=== PATIENT | female | born 1950 | race Caucasian/White ===

== ENCOUNTER 2017-12-28 12:06 | Inpatient (IN) | payer MEDICARE, OTHER ==
[~2017-12-28] VITALS: Ht 160 cm; Wt 102.1 kg
[2017-12-28] VITALS (327 sets, daily range): BP systolic 131–142; BP diastolic 72–82; PULSE 76–81; TEMP 97.4; O2SAT 67–100
[2017-12-28] MEDS ORDERED: LIPITOR 80MG80 MG PO (13:09)
[2017-12-28] MEDS ORDERED: ASPIRIN 32325 MG/TAB PO (13:09)
[2017-12-28] MEDS ORDERED: PHOSLO667 MG PO (13:10)
[2017-12-28] MEDS ORDERED: COREG 6.256.25 MG/TA PO (13:11)
[2017-12-28] MEDS ORDERED: LANTUS100 U/ML SQ (13:14)
[2017-12-28] MEDS ORDERED: NEURONTIN100 MG/CAP PO (13:15)
[2017-12-28] MEDS ORDERED: REMERON 15M15 MG/TA1 PO (13:15)
[2017-12-28] MEDS ORDERED: LYRICA 75MG CAP75 MG PO (13:15)
[2017-12-28] MEDS ORDERED: PROTEIN1 PDR (13:16)
[2017-12-28] MEDS ORDERED: SYNTHROID 0.0.025 MG PO (13:17)
[2017-12-28] MEDS ORDERED: BRINTELLIX10 PO (13:17)
[2017-12-28] MEDS ORDERED: TUMS500 MG PO (13:18)
[2017-12-28] MEDS ORDERED: ZIRGAN5 GM OP (13:18)
[2017-12-28] MEDS ORDERED: VITAMIN D31000 I1 PO (13:19)
[2017-12-28 13:48] LABS: BILIRUBIN,TOTAL 0.3 mg/dL (0.0-1.0); CALCIUM 8.8 mg/dL (8.4-10.2); MAGNESIUM 1.9 mg/dL (1.6-2.3); PHOSPHOROUS 4.2 mg/dL (2.5-4.5); POTASSIUM 5.7 mmol/L (3.4-5.0); TOTAL PROTEIN 6.9 gm/dL (6.4-8.2)
[2017-12-28 13:57] LABS: CREATININE, serum 8.22 mg/dL (0.52-1.25)
[2017-12-28 14:03] LABS: TROPONIN-I 0.043 ng/mL (0.000-0.034)
[2017-12-28 17:41] LABS: BASO % 0.2 % (0.0-2.0); EOS # 0.3 (0.0-0.7); GRAN # 7.8 (1.4-6.5); HEMOGLOBIN 11.7 g/dl (12.5-16.0); LYMPH # 0.7 (1.2-3.4); LYMPH % 7.9 % (20.0-51.0); MEAN CELL VOLUME 101 fl (80.0-100.0); MEAN CORPUSCULAR HEMOGLOBIN 32 pg (27.0-31.0); MEAN CORPUSCULAR HGB CONC 32 g/dl (33.0-37.0); MEAN PLATELET VOLUME 12.7 fl (7.4-10.4); MONO # 0.5 (0.1-0.6); MONO % 5.5 % (1.7-9.3); PLATELET COUNT 167 K/mm3 (130-400); RED BLOOD COUNT 3.63 M/mm3 (4.10-5.30); REDCELL DISTRIBUTION WIDTH-CV 18.3 % (11.5-14.5)
[2017-12-28 17:42] LABS: HEMATOCRIT 36.7 % (37.0-47.0)
[2017-12-29] VITALS (1222 sets, daily range): BP systolic 99–162; BP diastolic 61–77; PULSE 56–68; TEMP 97.8–98.5; O2SAT 61–100
[2017-12-29 08:38] LABS: CALCIUM 8.8 mg/dL (8.4-10.2); POTASSIUM 4.6 mmol/L (3.4-5.0)
[2017-12-29 08:51] LABS: BASO % 0.4 % (0.0-2.0); EOS # 0.3 (0.0-0.7); EOS % 3.7 % (0-4.0); GRAN # 5.5 (1.4-6.5); GRAN % 74.2 % (42.2-75.2); LYMPH # 0.9 (1.2-3.4); LYMPH % 12.6 % (20.0-51.0); MEAN CELL VOLUME 102 fl (80.0-100.0); MEAN CORPUSCULAR HEMOGLOBIN 32 pg (27.0-31.0); MEAN CORPUSCULAR HGB CONC 31 g/dl (33.0-37.0); MEAN PLATELET VOLUME 12.9 fl (7.4-10.4); MONO # 0.7 (0.1-0.6); MONO % 8.7 % (1.7-9.3); PLATELET COUNT 143 K/mm3 (130-400); RED BLOOD COUNT 3.13 M/mm3 (4.10-5.30); REDCELL DISTRIBUTION WIDTH-CV 18.5 % (11.5-14.5)
[2017-12-29 08:52] LABS: HEMATOCRIT 31.8 % (37.0-47.0)
[2017-12-29 08:54] LABS: CREATININE, serum 5.07 mg/dL (0.52-1.25); TROPONIN-I 0.138 ng/mL (0.000-0.034)
[2017-12-29 09:09] LABS: THYROID STIMULATING HORMONE 0.534 uIU/mL (0.465-4.680)
[2017-12-30] VITALS (681 sets, daily range): BP systolic 112–135; BP diastolic 44–73; PULSE 58–66; TEMP 97.9–98.7; O2SAT 35–100
[2017-12-30 07:54] LABS: CALCIUM 8.7 mg/dL (8.4-10.2); POTASSIUM 4.8 mmol/L (3.4-5.0)
[2017-12-30 08:02] LABS: CREATININE, serum 4.55 mg/dL (0.52-1.25)
[2017-12-30 08:18] LABS: BASO % 0.3 % (0.0-2.0); EOS # 0.2 (0.0-0.7); GRAN % 70.9 % (42.2-75.2); HEMOGLOBIN 10.9 g/dl (12.5-16.0); LYMPH % 14.8 % (20.0-51.0); MEAN CELL VOLUME 99 fl (80.0-100.0); MEAN CORPUSCULAR HEMOGLOBIN 32 pg (27.0-31.0); MEAN CORPUSCULAR HGB CONC 32 g/dl (33.0-37.0); MEAN PLATELET VOLUME 12.7 fl (7.4-10.4); MONO # 0.8 (0.1-0.6); MONO % 10.7 % (1.7-9.3); PLATELET COUNT 141 K/mm3 (130-400); RED BLOOD COUNT 3.43 M/mm3 (4.10-5.30); REDCELL DISTRIBUTION WIDTH-CV 17.7 % (11.5-14.5)
[2017-12-30 08:19] LABS: HEMATOCRIT 33.8 % (37.0-47.0)
[2017-12-31 04:01] VITALS: BP 140/58; PULSE 64; TEMP 98.2
[2017-12-31 08:02] VITALS: BP 138/52; PULSE 66; TEMP 98
[2017-12-31 11:39] VITALS: BP 116/42; PULSE 63; TEMP 97.8
[2017-12-31 13:41] LABS: BASO % 0.4 % (0.0-2.0); EOS # 0.3 (0.0-0.7); EOS % 3.8 % (0-4.0); GRAN # 5.5 (1.4-6.5); HEMOGLOBIN 10.4 g/dl (12.5-16.0); LYMPH # 0.9 (1.2-3.4); LYMPH % 12.5 % (20.0-51.0); MEAN CELL VOLUME 100 fl (80.0-100.0); MEAN CORPUSCULAR HEMOGLOBIN 33 pg (27.0-31.0); MEAN CORPUSCULAR HGB CONC 33 g/dl (33.0-37.0); MONO # 0.7 (0.1-0.6); MONO % 8.9 % (1.7-9.3); PLATELET COUNT 139 K/mm3 (130-400); REDCELL DISTRIBUTION WIDTH-CV 17.8 % (11.5-14.5)
[2017-12-31 13:55] LABS: CALCIUM 8.4 mg/dL (8.4-10.2)
[2017-12-31 13:58] LABS: CREATININE, serum 6.81 mg/dL (0.52-1.25)
[2017-12-31 15:54] VITALS: BP 146/59; PULSE 65; TEMP 98.4
[2017-12-31 20:53] VITALS: BP 146/57; PULSE 71; TEMP 97.5
[2018-01-01 00:22] VITALS: BP 132/54; PULSE 66; TEMP 98.3
[2018-01-01 05:02] VITALS: BP 137/49; PULSE 65; TEMP 98.6
[2018-01-01 07:52] VITALS: BP 139/56; PULSE 69; TEMP 98.1
[2018-01-01 09:09] LABS: BASO % 0.4 % (0.0-2.0); EOS # 0.3 (0.0-0.7); EOS % 3.8 % (0-4.0); GRAN # 5.3 (1.4-6.5); GRAN % 72.2 % (42.2-75.2); HEMATOCRIT 33.4 % (37.0-47.0); HEMOGLOBIN 10.8 g/dl (12.5-16.0); LYMPH % 13.4 % (20.0-51.0); MEAN CELL VOLUME 98 fl (80.0-100.0); MEAN CORPUSCULAR HEMOGLOBIN 32 pg (27.0-31.0); MEAN CORPUSCULAR HGB CONC 32 g/dl (33.0-37.0); MEAN PLATELET VOLUME 12.8 fl (7.4-10.4); MONO # 0.7 (0.1-0.6); MONO % 9.7 % (1.7-9.3); PLATELET COUNT 155 K/mm3 (130-400); REDCELL DISTRIBUTION WIDTH-CV 17.7 % (11.5-14.5)
[2018-01-01 09:21] LABS: CALCIUM 8.8 mg/dL (8.4-10.2); POTASSIUM 5.1 mmol/L (3.4-5.0)
[2018-01-01 09:30] LABS: CREATININE, serum 5.03 mg/dL (0.52-1.25)
[2018-01-01 11:13] VITALS: BP 109/52; PULSE 63; TEMP 97.3
[2018-01-01 16:38] VITALS: BP 122/49; PULSE 58; TEMP 97.9
[2018-01-01 20:23] VITALS: BP 117/55; PULSE 57; TEMP 98.3
[2018-01-02 00:07] VITALS: BP 104/51; PULSE 56; TEMP 98.2
[2018-01-02 03:45] VITALS: BP 120/50; PULSE 56; TEMP 98.1
[2018-01-02 06:12] LABS: BASO % 0.4 % (0.0-2.0); EOS # 0.3 (0.0-0.7); EOS % 4.8 % (0-4.0); GRAN # 4.5 (1.4-6.5); HEMOGLOBIN 10.7 g/dl (12.5-16.0); LYMPH # 1.2 (1.2-3.4); MEAN CELL VOLUME 102 fl (80.0-100.0); MEAN CORPUSCULAR HEMOGLOBIN 32 pg (27.0-31.0); MEAN CORPUSCULAR HGB CONC 31 g/dl (33.0-37.0); MEAN PLATELET VOLUME 12.5 fl (7.4-10.4); MONO # 0.8 (0.1-0.6); MONO % 11.2 % (1.7-9.3); PLATELET COUNT 147 K/mm3 (130-400); RED BLOOD COUNT 3.37 M/mm3 (4.10-5.30); REDCELL DISTRIBUTION WIDTH-CV 17.8 % (11.5-14.5)
[2018-01-02 06:13] LABS: HEMATOCRIT 34.4 % (37.0-47.0)
[2018-01-02 06:18] LABS: ALBUMIN 3.7 gm/dL (3.5-5.0); PHOSPHOROUS 6.1 mg/dL (2.5-4.5)
[2018-01-02 06:31] LABS: CREATININE, serum 6.72 mg/dL (0.52-1.25)
[2018-01-02 06:32] LABS: POTASSIUM 6.2 mmol/L (3.4-5.0)
[2018-01-02 07:34] VITALS: BP 124/48; PULSE 57; TEMP 98.2
[2018-01-02] MEDS ORDERED: MONODOX100 PO (15:54)
[2018-01-02] MEDS ORDERED: CORDARONE200 MG/TAB PO (15:57)
[2018-01-02] MEDS ORDERED: NORCO 325 MG-7.1 TAB PO (15:57)
[2018-01-02] MEDS ORDERED: BRINTELLIX10 (15:58)
[2018-01-02] MEDS ORDERED: LEVEMIR100 U/ML SQ (15:58)
[2018-01-02 15:59] VITALS: BP 112/45; PULSE 80; TEMP 98.2
[2018-01-02 16:20] VITALS: BP 112/45; PULSE 80; TEMP 98.2
[2018-01-02] MEDS ORDERED: NOVOLOG 100U100 U/M1 SQ ×2 (17:00→17:03)
== END 2018-01-02 16:37 | DRG 640 ==
LOC: COL.ER 12:06 → ICU 12:26 → MEDICAL 12:26 → ICU 18:23 → MEDICAL 12-30 19:51
PROVIDERS: Emergency Medicine; Internal Medicine; Internal Medicine Nephrology
PROC: 5A1D70Z Performance of Urinary Filtration, Intermittent, Less than 6 Hours Per Day (ICD-10-PCS; principal; 2017-12-28)
PROC: 5A1D70Z Performance of Urinary Filtration, Intermittent, Less than 6 Hours Per Day (ICD-10-PCS; 2017-12-29)
PROC: 5A1D70Z Performance of Urinary Filtration, Intermittent, Less than 6 Hours Per Day (ICD-10-PCS; 2017-12-31)
PROC: 5A1D70Z Performance of Urinary Filtration, Intermittent, Less than 6 Hours Per Day (ICD-10-PCS; 2018-01-02)
DX: E87.70 Fluid overload, unspecified (principal); N18.6 End stage renal disease; I13.2 Hypertensive heart and chronic kidney disease with heart failure and with stage 5 chronic kidney disease, or end stage renal disease; I50.32 Chronic diastolic (congestive) heart failure; E11.22 Type 2 diabetes mellitus with diabetic chronic kidney disease; I16.0 Hypertensive urgency; I25.10 Atherosclerotic heart disease of native coronary artery without angina pectoris; I48.91 Unspecified atrial fibrillation; D63.1 Anemia in chronic kidney disease; M79.7 Fibromyalgia; E11.42 Type 2 diabetes mellitus with diabetic polyneuropathy; E11.21 Type 2 diabetes mellitus with diabetic nephropathy; E11.319 Type 2 diabetes mellitus with unspecified diabetic retinopathy without macular edema; E87.5 Hyperkalemia; D37.8 Neoplasm of uncertain behavior of other specified digestive organs; Z99.2 Dependence on renal dialysis; Z79.4 Long term (current) use of insulin; Z95.5 Presence of coronary angioplasty implant and graft; Z91.11 Patient's noncompliance with dietary regimen; Z79.01 Long term (current) use of anticoagulants; Z85.41 Personal history of malignant neoplasm of cervix uteri; Z86.718 Personal history of other venous thrombosis and embolism; J01.90 Acute sinusitis, unspecified; I08.0 Rheumatic disorders of both mitral and aortic valves
CPT/HCPCS: J0282; J1815; J7060

== ENCOUNTER 2018-01-02 12:54 | Inpatient (IN) | payer MEDICARE, OTHER ==
[~2018-01-02] VITALS: Ht 157.5 cm; Wt 106.2 kg
[~2018-01-02 12:54] MED LIST: ASPIRIN 32325 MG/TAB PO; BRINTELLIX10 PO; COREG 6.256.25 MG/TA PO; LANTUS100 U/ML SQ; LIPITOR 80MG80 MG PO; LYRICA 75MG CAP75 MG PO; NEURONTIN100 MG/CAP PO; PHOSLO667 MG PO; PROTEIN1 PDR; REMERON 15M15 MG/TA1 PO; SYNTHROID 0.0.025 MG PO; TUMS500 MG PO; VITAMIN D31000 I1 PO; ZIRGAN5 GM OP
[2018-01-02] MEDS ORDERED: MONODOX100 PO (15:54)
[2018-01-02] MEDS ORDERED: CORDARONE200 MG/TAB PO (15:57)
[2018-01-02] MEDS ORDERED: NORCO 325 MG-7.1 TAB PO (15:57)
[2018-01-02] MEDS ORDERED: LEVEMIR100 U/ML SQ (15:58)
[2018-01-02] MEDS ORDERED: BRINTELLIX10 (15:58)
[2018-01-02 16:49] VITALS: BP 113/67; PULSE 63; TEMP 98.7
[2018-01-02] MEDS ORDERED: NOVOLOG 100U100 U/M1 SQ ×2 (17:00→17:03)
[2018-01-02 17:57] VITALS: BP 113/67; PULSE 63; TEMP 98.7
[2018-01-03 03:37] VITALS: BP 122/48; PULSE 64; TEMP 98.2
[2018-01-03 16:49] VITALS: BP 138/43; PULSE 66; TEMP 98.4
[2018-01-04 04:10] VITALS: BP 141/45; PULSE 62; TEMP 98.5
[2018-01-04 16:12] VITALS: BP 67/51; PULSE 55; TEMP 97.4
[2018-01-04 17:33] VITALS: BP 136/47; PULSE 55
[2018-01-04 21:00] VITALS: BP 140/65; PULSE 58
[2018-01-05 04:19] VITALS: BP 130/66; PULSE 64; TEMP 98.3
[2018-01-05 09:30] LABS: BASO # 0.1 (0.0-0.2); BASO % 0.6 % (0.0-2.0); EOS # 0.2 (0.0-0.7); EOS % 2.8 % (0-4.0); GRAN # 5.6 (1.4-6.5); GRAN % 71.7 % (42.2-75.2); HEMOGLOBIN 10.7 g/dl (12.5-16.0); LYMPH # 1.2 (1.2-3.4); LYMPH % 15.2 % (20.0-51.0); MEAN CELL VOLUME 102 fl (80.0-100.0); MEAN CORPUSCULAR HEMOGLOBIN 32 pg (27.0-31.0); MEAN CORPUSCULAR HGB CONC 31 g/dl (33.0-37.0); MONO # 0.7 (0.1-0.6); MONO % 9.2 % (1.7-9.3); PLATELET COUNT 165 K/mm3 (130-400); RED BLOOD COUNT 3.34 M/mm3 (4.10-5.30); REDCELL DISTRIBUTION WIDTH-CV 17.8 % (11.5-14.5)
[2018-01-05 09:35] LABS: HEMATOCRIT 34.2 % (37.0-47.0)
[2018-01-05 09:42] LABS: CALCIUM 8.5 mg/dL (8.4-10.2); PHOSPHOROUS 7.4 mg/dL (2.5-4.5)
[2018-01-05 09:49] LABS: CREATININE, serum 9.18 mg/dL (0.52-1.25); POTASSIUM 6.2 mmol/L (3.4-5.0)
[2018-01-05 16:24] VITALS: BP 113/37; PULSE 68; TEMP 99.4
[2018-01-06 03:52] VITALS: BP 148/53; PULSE 71; TEMP 98.5
[2018-01-06 18:25] VITALS: BP 148/56; PULSE 62; TEMP 98
[2018-01-07 05:10] VITALS: BP 122/52; PULSE 59; TEMP 98.1
[2018-01-07 16:59] VITALS: BP 141/54; PULSE 66; TEMP 98.2
[2018-01-08 05:23] VITALS: BP 126/41; PULSE 67; TEMP 98.2
[2018-01-08 08:00] LABS: BASO # 0.1 (0.0-0.2); BASO % 0.7 % (0.0-2.0); EOS # 0.2 (0.0-0.7); EOS % 3.3 % (0-4.0); GRAN % 68.4 % (42.2-75.2); LYMPH # 1.4 (1.2-3.4); LYMPH % 19.2 % (20.0-51.0); MEAN CELL VOLUME 102 fl (80.0-100.0); MEAN CORPUSCULAR HGB CONC 31 g/dl (33.0-37.0); MEAN PLATELET VOLUME 12.3 fl (7.4-10.4); MONO # 0.6 (0.1-0.6); MONO % 8.1 % (1.7-9.3); PLATELET COUNT 156 K/mm3 (130-400); RED BLOOD COUNT 3.09 M/mm3 (4.10-5.30); REDCELL DISTRIBUTION WIDTH-CV 17.9 % (11.5-14.5)
[2018-01-08 08:01] LABS: HEMATOCRIT 31.6 % (37.0-47.0); HEMOGLOBIN 9.8 g/dl (12.5-16.0); MEAN CORPUSCULAR HEMOGLOBIN 32 pg (27.0-31.0)
[2018-01-08 08:17] LABS: ALBUMIN 3.8 gm/dL (3.5-5.0)
[2018-01-08 08:26] LABS: POTASSIUM 6.3 mmol/L (3.4-5.0)
[2018-01-08 08:27] LABS: CREATININE, serum 9.62 mg/dL (0.52-1.25)
[2018-01-08 17:04] VITALS: BP 114/59; PULSE 62; TEMP 98
[2018-01-09 06:40] VITALS: BP 128/40; PULSE 66; TEMP 97.7
[2018-01-09] MEDS ORDERED: COREG 3.123.125 MG/T PO (09:43)
== END 2018-01-09 16:40 | disposition home health service (06) | DRG 947 ==
PROVIDERS: Internal Medicine Nephrology
PROC: 5A1D70Z Performance of Urinary Filtration, Intermittent, Less than 6 Hours Per Day (ICD-10-PCS; principal; 2018-01-05)
PROC: 5A1D70Z Performance of Urinary Filtration, Intermittent, Less than 6 Hours Per Day (ICD-10-PCS; 2018-01-08)
DX: R53.81 Other malaise (principal); N18.6 End stage renal disease; I13.2 Hypertensive heart and chronic kidney disease with heart failure and with stage 5 chronic kidney disease, or end stage renal disease; I50.32 Chronic diastolic (congestive) heart failure; E11.22 Type 2 diabetes mellitus with diabetic chronic kidney disease; Z99.2 Dependence on renal dialysis; E11.42 Type 2 diabetes mellitus with diabetic polyneuropathy; E11.21 Type 2 diabetes mellitus with diabetic nephropathy; E11.319 Type 2 diabetes mellitus with unspecified diabetic retinopathy without macular edema; D63.1 Anemia in chronic kidney disease; I48.0 Paroxysmal atrial fibrillation; I25.10 Atherosclerotic heart disease of native coronary artery without angina pectoris; Z95.5 Presence of coronary angioplasty implant and graft; M79.7 Fibromyalgia; Z85.41 Personal history of malignant neoplasm of cervix uteri; Z85.07 Personal history of malignant neoplasm of pancreas; Z79.4 Long term (current) use of insulin; F17.210 Nicotine dependence, cigarettes, uncomplicated; G89.29 Other chronic pain
CPT/HCPCS: 99222-AI; 99232-AI; 99239; J1644; J1815

== ENCOUNTER 2018-01-11 10:14 | Inpatient (IN) | payer MEDICARE, OTHER ==
[~2018-01-11] VITALS: Ht 160 cm; Wt 151.3 kg
[2018-01-11] VITALS (501 sets, daily range): BP systolic 111; BP diastolic 72; PULSE 104; TEMP 99.5; O2SAT 80–100
[~2018-01-11 10:14] MED LIST changes: +BRINTELLIX10; +CORDARONE200 MG/TAB PO; +COREG 3.123.125 MG/T PO; +LEVEMIR100 U/ML SQ; +MONODOX100 PO; +NORCO 325 MG-7.1 TAB PO; +NOVOLOG 100U100 U/M1 SQ
[2018-01-11 11:51] LABS: BASO # 0.1 (0.0-0.2); BASO % 0.5 % (0.0-2.0); EOS # 0.1 (0.0-0.7); EOS % 0.6 % (0-4.0); GRAN # 10.9 (1.4-6.5); GRAN % 88.3 % (42.2-75.2); HEMATOCRIT 31.8 % (37.0-47.0); LYMPH # 0.6 (1.2-3.4); LYMPH % 5.2 % (20.0-51.0); MEAN CELL VOLUME 100 fl (80.0-100.0); MEAN CORPUSCULAR HEMOGLOBIN 32 pg (27.0-31.0); MEAN CORPUSCULAR HGB CONC 31 g/dl (33.0-37.0); MEAN PLATELET VOLUME 13.2 fl (7.4-10.4); MONO # 0.6 (0.1-0.6); MONO % 4.9 % (1.7-9.3); PLATELET COUNT 150 K/mm3 (130-400); RED BLOOD COUNT 3.17 M/mm3 (4.10-5.30); REDCELL DISTRIBUTION WIDTH-CV 17.9 % (11.5-14.5)
[2018-01-11 12:16] LABS: CALCIUM 8.5 mg/dL (8.4-10.2)
[2018-01-11 12:22] LABS: CREATININE, serum 9.27 mg/dL (0.52-1.25); POTASSIUM 7.1 mmol/L (3.4-5.0)
[2018-01-12] VITALS (1243 sets, daily range): BP systolic 81–116; BP diastolic 55–83; PULSE 60–106; TEMP 96.9–98.8; O2SAT 58–100
[2018-01-12 06:10] LABS: BASO # 0.1 (0.0-0.2); BASO % 0.8 % (0.0-2.0); EOS # 0.1 (0.0-0.7); EOS % 1.9 % (0-4.0); GRAN # 4.8 (1.4-6.5); GRAN % 75.3 % (42.2-75.2); LYMPH # 0.9 (1.2-3.4); MEAN CELL VOLUME 102 fl (80.0-100.0); MEAN CORPUSCULAR HGB CONC 31 g/dl (33.0-37.0); MEAN PLATELET VOLUME 13.3 fl (7.4-10.4); MONO # 0.5 (0.1-0.6); MONO % 7.7 % (1.7-9.3); PLATELET COUNT 131 K/mm3 (130-400); RED BLOOD COUNT 2.69 M/mm3 (4.10-5.30); REDCELL DISTRIBUTION WIDTH-CV 18.3 % (11.5-14.5)
[2018-01-12 06:18] LABS: HEMATOCRIT 27.5 % (37.0-47.0); HEMOGLOBIN 8.5 g/dl (12.5-16.0); MEAN CORPUSCULAR HEMOGLOBIN 32 pg (27.0-31.0)
[2018-01-12 06:23] LABS: CALCIUM 8.7 mg/dL (8.4-10.2); POTASSIUM 5.7 mmol/L (3.4-5.0)
[2018-01-12 06:52] LABS: CREATININE, serum 6.39 mg/dL (0.52-1.25)
[2018-01-13] VITALS (812 sets, daily range): BP systolic 115–148; BP diastolic 50–75; PULSE 58–64; TEMP 97.8–98.6; O2SAT 84–100
[2018-01-13 06:07] LABS: BASO # 0.1 (0.0-0.2); BASO % 0.7 % (0.0-2.0); EOS # 0.2 (0.0-0.7); EOS % 3.6 % (0-4.0); GRAN # 4.6 (1.4-6.5); GRAN % 68.1 % (42.2-75.2); LYMPH # 1.2 (1.2-3.4); LYMPH % 17.6 % (20.0-51.0); MEAN CELL VOLUME 103 fl (80.0-100.0); MEAN CORPUSCULAR HGB CONC 30 g/dl (33.0-37.0); MEAN PLATELET VOLUME 13.7 fl (7.4-10.4); MONO # 0.7 (0.1-0.6); MONO % 9.6 % (1.7-9.3); PLATELET COUNT 127 K/mm3 (130-400); REDCELL DISTRIBUTION WIDTH-CV 17.8 % (11.5-14.5)
[2018-01-13 06:09] LABS: HEMATOCRIT 28.9 % (37.0-47.0); HEMOGLOBIN 8.8 g/dl (12.5-16.0); MEAN CORPUSCULAR HEMOGLOBIN 31 pg (27.0-31.0)
[2018-01-13 06:22] LABS: CALCIUM 8.6 mg/dL (8.4-10.2); POTASSIUM 5.6 mmol/L (3.4-5.0)
[2018-01-13 06:24] LABS: CREATININE, serum 5.38 mg/dL (0.52-1.25)
[2018-01-14] VITALS (7 sets, daily range): BP systolic 113–160; BP diastolic 46–83; PULSE 63–94; TEMP 97–98.6
[2018-01-14 07:25] LABS: BASO # 0.1 (0.0-0.2); BASO % 0.7 % (0.0-2.0); EOS # 0.2 (0.0-0.7); EOS % 2.9 % (0-4.0); GRAN # 5.8 (1.4-6.5); GRAN % 74.9 % (42.2-75.2); LYMPH % 12.4 % (20.0-51.0); MEAN CELL VOLUME 104 fl (80.0-100.0); MEAN CORPUSCULAR HGB CONC 30 g/dl (33.0-37.0); MEAN PLATELET VOLUME 13.7 fl (7.4-10.4); MONO # 0.6 (0.1-0.6); MONO % 8.3 % (1.7-9.3); PLATELET COUNT 132 K/mm3 (130-400); RED BLOOD COUNT 2.95 M/mm3 (4.10-5.30); REDCELL DISTRIBUTION WIDTH-CV 17.2 % (11.5-14.5)
[2018-01-14 07:26] LABS: HEMATOCRIT 30.7 % (37.0-47.0); HEMOGLOBIN 9.2 g/dl (12.5-16.0); MEAN CORPUSCULAR HEMOGLOBIN 31 pg (27.0-31.0)
[2018-01-14 07:37] LABS: CALCIUM 8.4 mg/dL (8.4-10.2)
[2018-01-14 07:39] LABS: CREATININE, serum 7.37 mg/dL (0.52-1.25); POTASSIUM 6.2 mmol/L (3.4-5.0)
[2018-01-15 03:53] VITALS: BP 143/51; PULSE 62; TEMP 97.9
[2018-01-15 06:13] LABS: BASO # 0.1 (0.0-0.2); BASO % 0.9 % (0.0-2.0); EOS # 0.2 (0.0-0.7); EOS % 2.3 % (0-4.0); GRAN % 72.8 % (42.2-75.2); LYMPH # 0.9 (1.2-3.4); LYMPH % 13.7 % (20.0-51.0); MEAN CELL VOLUME 104 fl (80.0-100.0); MEAN CORPUSCULAR HGB CONC 30 g/dl (33.0-37.0); MEAN PLATELET VOLUME 13.8 fl (7.4-10.4); MONO # 0.7 (0.1-0.6); MONO % 9.9 % (1.7-9.3); PLATELET COUNT 118 K/mm3 (130-400); RED BLOOD COUNT 2.71 M/mm3 (4.10-5.30); REDCELL DISTRIBUTION WIDTH-CV 17.2 % (11.5-14.5)
[2018-01-15 06:15] LABS: HEMATOCRIT 28.2 % (37.0-47.0); HEMOGLOBIN 8.4 g/dl (12.5-16.0); MEAN CORPUSCULAR HEMOGLOBIN 31 pg (27.0-31.0)
[2018-01-15 06:19] LABS: CALCIUM 8.3 mg/dL (8.4-10.2)
[2018-01-15 06:21] LABS: CREATININE, serum 5.72 mg/dL (0.52-1.25)
[2018-01-15 08:38] VITALS: BP 137/48; PULSE 75; TEMP 98.6
[2018-01-15] MEDS ORDERED: VELTASSA8.4 GM PO (11:07)
[2018-01-15 11:17] VITALS: BP 137/48; PULSE 75; TEMP 98.6
[2018-01-15 11:26] VITALS: BP 155/55; PULSE 61; TEMP 97.8
== END 2018-01-15 15:16 | disposition short-term general hospital (02) | DRG 640 ==
LOC: COL.ER 10:14 → IMCU 12:40 → ICU 16:11 → MEDICAL 01-13 14:10
PROVIDERS: Family Medicine; Internal Medicine
PROC: 5A1D70Z Performance of Urinary Filtration, Intermittent, Less than 6 Hours Per Day (ICD-10-PCS; principal; 2018-01-11)
PROC: 5A1D70Z Performance of Urinary Filtration, Intermittent, Less than 6 Hours Per Day (ICD-10-PCS; 2018-01-12)
PROC: 5A1D70Z Performance of Urinary Filtration, Intermittent, Less than 6 Hours Per Day (ICD-10-PCS; 2018-01-14)
DX: E87.70 Fluid overload, unspecified (principal); N18.6 End stage renal disease; I13.2 Hypertensive heart and chronic kidney disease with heart failure and with stage 5 chronic kidney disease, or end stage renal disease; I50.32 Chronic diastolic (congestive) heart failure; E87.5 Hyperkalemia; E11.22 Type 2 diabetes mellitus with diabetic chronic kidney disease; Z99.2 Dependence on renal dialysis; D63.1 Anemia in chronic kidney disease; I25.10 Atherosclerotic heart disease of native coronary artery without angina pectoris; I48.91 Unspecified atrial fibrillation; J45.909 Unspecified asthma, uncomplicated; Z85.41 Personal history of malignant neoplasm of cervix uteri; M79.7 Fibromyalgia; G89.29 Other chronic pain; E11.21 Type 2 diabetes mellitus with diabetic nephropathy; E11.319 Type 2 diabetes mellitus with unspecified diabetic retinopathy without macular edema; E11.42 Type 2 diabetes mellitus with diabetic polyneuropathy; Z87.891 Personal history of nicotine dependence; I16.0 Hypertensive urgency; T46.2X6A Underdosing of other antidysrhythmic drugs, initial encounter; T44.7X6A Underdosing of beta-adrenoreceptor antagonists, initial encounter; Z91.11 Patient's noncompliance with dietary regimen; I95.3 Hypotension of hemodialysis
CPT/HCPCS: J0282; J1644; J1815; J7060